=== PATIENT | male | born 1960 | race Caucasian/White ===

== ENCOUNTER → 2018-06-28 | Outpatient (CLI) | payer SELFPAY ==
--- NOTE | 2018-06-28 16:15 | RADIOLOGY IMAGING REPORT ---
FACILITY: [facility] - [place] PATIENT NAME: Bro Coates : 1960 MR: [id number] V: [id number] EXAM DATE: ORDERING PHYSICIAN: HARLAN BURNETT TECHNOLOGIST: [place] [facility] [place]: Bro Coates : 1960 Visit/Account:[id number] Date of Sevice: 06/28/2018 EXAMINATION: Scrotal ultrasound with duplex Doppler evaluation. HISTORY: Left testicular swelling.: Headache. COMPARISON: None. FINDINGS: Normal size and echogenicity of both testicles. No focal intratesticular mass. The right testis tiago ures 5.4 x 2.3 x 3.6 cm; the left testis 4.9 x 2.1 x 3.9 cm. The left testicle demonstrates slight in creased vascularity relative to the right testicle with color Doppler. The right testicle demonstrat es normal vascularity with color and spectral Doppler. The left epididymal head is mildly heterogeneous measuring 1.3 cm. There is slight increased vascula rity in the head and body of the left epididymis. The right epididymal head is unremarkable and tiago ures 0.9 cm. There is a trace left-sided hydrocele. Small left varicocele. IMPRESSION: 1. There is slight increased vascularity in the left epididymis and left testicle relative to the ri ght side. Findings may be compatible with epididymoorchitis. 2. Trace left-sided hydrocele. 3. Small left varicocele. Findings were discussed with HARLAN BURNETT at 06/28/2018 4:09 PM. Report Dictated By: Jean-Palu Thompson MD at 06/28/2018 4:04 PM Report E-Signed By: Jean-Paul Thompson MD at 06/28/2018 4:12 PM WSN:[id number]
== END ==
LOC: US 14:49
PROVIDERS: ATTEND Nurse Practitioner Family
DX: N43.3 Hydrocele, unspecified (principal); I86.1 Scrotal varices
CPT/HCPCS: 76870